=== PATIENT | male | born 1950 | race Caucasian/White ===

== ENCOUNTER 2021-05-20 09:40 | Day surgery (SDC) | payer OTHER ==
[~2021-05-20] VITALS: Ht 172.7 cm; Wt 108.0 kg
--- NOTE | ~2021-05-20 | O ---
[facility] [address] [address] OPERATIVE REPORT Name: VIANEY RAMIREZ Room #: 150-2 [facility] M.R.#: [id number] Admission: 05/20/21 Attend Phys: Edy Anthony MD Discharge: Date of : 50 Report #: [id number] THIS REPORT FOR: cc: FAM - Family physician unknown FAM - Family physician unknown Edy Anthony MD ~ DATE OF SERVICE: 05/20/2021 PREOPERATIVE DIAGNOSES: 1. Chronic maxillary sinusitis. 2. Chronic ethmoid sinusitis. 3. Chronic frontal sinusitis. 4. Chronic sphenoid sinusitis. 5. Chronic nasal congestion. 6. Bilateral inferior turbinate hypertrophy. POSTOPERATIVE DIAGNOSES: 1. Chronic maxillary sinusitis. 2. Chronic ethmoid sinusitis. 3. Chronic frontal sinusitis. 4. Chronic sphenoid sinusitis. 5. Chronic nasal congestion. 6. Bilateral inferior turbinate hypertrophy. PROCEDURES PERFORMED: 1. Image-guided bilateral endoscopic maxillary antrostomy with tissue removal. 2. Image-guided bilateral endoscopic total ethmoidectomy with sphenoidotomy. 3. Image-guided bilateral endoscopic frontal sinusotomies. 4. Bilateral inferior turbinate reduction. SURGEON: Edy Anthony MD WILDLIFE REFUGE SPECIALIST: None. ANESTHESIA: General. ESTIMATED BLOOD LOSS: Approximately 50 mL. SPECIMENS: Bilateral sinus contents. IMPLANTS: Bilateral Novapak to the ethmoid cavity. COMPLICATIONS: None. INDICATIONS: The patient is a 70-year-old male with a long history of chronic nasal congestion that is resistant to medical therapy who was seen in the [facility] [address] [place] [address] OPERATIVE REPORT Name: VIANEY RAMIREZ Room #: 150-2 [facility]..#: [id number] Admission: 05/20/21 Attend Phys: Edy Anthony MD Discharge: Date of : 50 Report #: [id number] scan examination revealed severe bilateral pansinus disease and he was consented for the above-named procedures after having discussion about the benefits and risks. DESCRIPTION OF PROCEDURE: The patient was identified in the preoperative area before being transported to the operating room and placed supine on the operating table. At this point, general endotracheal anesthesia was induced and a timeout was called to ensure patient identity and procedure to be performed. Once all were in agreement, the nose was injected with 1% lidocaine with 1:100,000 epinephrine solution into the septum, bilateral middle turbinates and inferior turbinates. Then, both nasal cavities were packed with cottonoid pledgets soaked in oxymetazoline. Next, the image-guided system was registered and confirmed to be accurate. The table was then rotated 90 degrees. Starting first on the patient's right side, the 0-degree endoscope was inserted and the oxymetazoline-soaked cottonoid pledgets were removed. A thorough inspection was performed followed by gentle medialization of the middle turbinate using a Amelia elevator, followed by uncinectomy using the microdebrider. The maxillary antrum was identified and enlarged using a combination of the curved ball probe, backbiting forceps and the microdebrider to increase its diameter significantly. At this point, attention was turned to the ethmoids where a total ethmoidectomy was performed in a stepwise fashion from anterior to posterior using image guidance for confirmation of air cells. This was performed primarily using the microdebrider. At this point, the sphenoid ostium was identified, entered and enlarged using the microdebrider and contents were suctioned free from of the sphenoid, the ethmoid cavity and the maxillary sinus. Next, the frontal recess was further enlarged using the microdebrider and a 70-degree image-guided suction was inserted through the nasal frontal duct up into the frontal sinus and evacuated the contents of this sinus. This completed the procedure on the patient's right side. At this point, a Boies elevator was used to lateralize the inferior turbinate into a better position. The cottonoid pledget was left in the ethmoid cavity and attention was then turned to the patient's left side where all steps were repeated exactly the same with similar findings. Attention was then turned back to the patient's right side. The cottonoid pledget was removed. Copious irrigation was performed using sterile saline solution followed by suction evacuation. Finally, a Novapak dissolvable packing material was left in the patient's right ethmoid cavity followed by the same steps on the patient's left side. At this point, a further look was performed to ensure no further bleeding. There was none that was noticed. At this point, all instrument, sponge and needle counts were correct x2. The patient was reversed from anesthesia and transported to PACU in a stable condition. DISPOSITION: The patient will be discharged after meeting general discharge criteria. He has been given prescriptions for pain medication and antibiotics to be used as directed. He should engage in nasal saline irrigations at least 5 [facility] [address] [place] [address] OPERATIVE REPORT Name: VIANEY RAMIREZ Room #: 150-2 [facility] M.R.#: [id number] Admission: 05/20/21 Attend Phys: Edy Anthony MD Discharge: Date of : 50 Report #: [id number] times per day for the first week. I will see him in one week's time for pathology review and postoperative check. By: 1236 [id number] Edy Anthony MD /nt
[~2021-05-20 09:40] MED LIST: ASPIRIN EC81 M1 PO; BASAGLAR K100 UNIT/1 SUBQ; CARVEDILOL6.25 M1 PO; CLOPIDOGREL75 MG PO; FISH OIL 1,001000 M3 PO; LISINOPRIL2.5 MG PO; PROAIR HFA8.5 GM INH; ROSUVASTATIN CA40 MG PO; TAMSULOSIN HCL0.4 MG PO; VITAMIN D310 MCG PO; ZINC30 MG PO
[2021-05-20 11:18] LABS: HEMATOCRIT 47.6 % (42.0-52.0); HEMOGLOBIN 15.6 gm/dL (14.0-18.0); MCH 28.1 pg (26.0-34.0); MCHC 32.7 g/dL (28.0-37.0); MCV 85.8 fL (80.0-100.0); RBC 5.54 mil/uL (4.50-6.00); RDW 14.1 % (10.5-14.5); WBC 6.1 thou/uL (4.0-11.0)
--- NOTE | 2021-05-24 15:07 | PATH ---
[facility] [address] [place] [address] PATHOLOGY RPT PROCEDURE Name: TOMMY RAMIREZ Room #: [facility] M.R.#: [id number] Admission: 05/20/21 Date of : 50 Discharge: 05/20/21 Report #: [id number] Path Case #: [id number] [facility] Accession Number: [id number] . 01 Material submitted: . sinus, frontal - BILATERAL SINUS CONTENTS. Modifiers: bilateral . 01 Clinical history: . CHRONIC SINUSITIS, HYPERTROPHY, NASAL TURBINATE, DEVIATED NASAL SEPTUM . 02 Diagnosis: Respiratory mucosa and submucosa (bilateral sinus contents): - Mild chronic sinusitis, submucosal fibrosis and bone fragments identified. (CUONG:freddy; 05/24/2021) MBR 05/24/2021 1239 Local . 02 Electronically signed: . Bro Quarles MD, Pathologist NPI- [id number] . 01 Gross description: . The specimen is received in formalin, labeled "Deneke, Tommy, bilateral sinus contents" and consists of multiple jorge-herrmann soft irregular tissues aggregating 2.0 x 1.1 x 0.8 cm. The largest tissue is serially sectioned. The specimen is filtered and submitted entirely in A1 following brief decalcification. (ELIM IRA; 05/23/2021) DKA/DKA 05/24/2021 1238 Local . 02 Pathologist provided ICD-10: J32.9 . 02 CPT . 418090, 442270 Specimen Comment: A courtesy copy of this report has been sent to [phone] Specimen Comment: Report sent to Performed at: 01 [facility] [address] [id number] MD Dillon Hays MD Phone: [phone] Performed at: 02 [place] [address] [address] [id number] MD Bro Quarles MD Phone: [phone]
== END 2021-05-20 13:58 | disposition home or self-care (01) ==
LOC: OR 09:40 → TBA 09:43 → OR 11:52 → EDSTATUS 14:54 → OR 14:55
PROVIDERS: ATTEND Otolaryngology
DX: J32.0 Chronic maxillary sinusitis (principal); J32.1 Chronic frontal sinusitis; J32.2 Chronic ethmoidal sinusitis; J32.3 Chronic sphenoidal sinusitis; R09.81 Nasal congestion; J34.3 Hypertrophy of nasal turbinates; I10 Essential (primary) hypertension; E11.9 Type 2 diabetes mellitus without complications; E78.00 Pure hypercholesterolemia, unspecified; I25.2 Old myocardial infarction; Z98.890 Other specified postprocedural states; Z79.899 Other long term (current) drug therapy; Z20.822 Contact with and (suspected) exposure to COVID-19; Z86.73 Personal history of transient ischemic attack (TIA), and cerebral infarction without residual deficits; Z85.46 Personal history of malignant neoplasm of prostate
CPT/HCPCS: 50010; 50101; 50275; 50386; 50398; 50573; 52290; 52291; 62110; 62900; 70005